=== PATIENT | male | born 1940 | race Caucasian/White ===

== ENCOUNTER 2017-10-29 17:41 | Emergency (ER) | payer OTHER ==
[~2017-10-29 17:41] MED LIST: AMLO10TA2 PO; ASPI1TAB69 PO; ATOR10TA15 PO; CEPH-460 PO; CHEL50TA PO; COQ1200C3 PO; D400400C PO; LOSA50TA PO; METO25TA3 PO; MOBI15TA PO; MULT-6 PO; PROSCAP2 PO
[2017-10-29 17:57] VITALS: BP 192/92; PULSE 91; RESP 18; TEMP 100.3; O2SAT 100
== END 2017-10-29 19:28 | disposition left against medical advice (07) ==
LOC: NED 17:41
DX: R05 Cough (principal); Z53.21 Procedure and treatment not carried out due to patient leaving prior to being seen by health care provider
CPT/HCPCS: 99281